=== PATIENT | female | born 1990 | race African-American/Black ===

== ENCOUNTER 2019-05-08 14:36 | Emergency (ER) | payer OTHER ==
[2019-05-08 14:54] VITALS: BP 120/74
--- NOTE | 2019-05-08 15:06 | UC ---
Throat Pain/Nasal Marc HPI - HPI Summary HPI Summary: 28-year-old female with a sore throat since Wednesday evening. She denies any fever or chills. - History of Current Complaint Chief Complaint: UCGeneralIllness Stated Complaint: SORE THROAT Time Seen by Provider: 05/08/19 14:47 Hx Obtained From: Patient ?: No Onset/Duration: Gradual Onset Severity: Mild Pain Intensity: 5 Cough: None Associated Signs & Symptoms: Positive: Negative - Allergies/Home Medications Allergies/Adverse Reactions: Allergies Allergy/AdvReac Type Severity Reaction Status Date / Time No Known Allergies Allergy Verified 05/08/19 14:54 Home Medications: Home Medications Ascorbic Acid TAB* [Vitamin C TAB*] 500 mg PO DAILY 05/08/19 [History Confirmed 05/08/19] Calcium Carbonate [Calcium/C/D] 1 chw PO DAILY 05/08/19 [History Confirmed 05/08] Mcnary-3S/Dha/Epa/Fish Oil [Fish Oil 1,200 mg Softgel] 1 each PO DAILY 05/08/19 [ History Confirmed 05/08/19] Sertraline* [Zoloft*] 25 mg PO DAILY 05/08/19 [History Confirmed 05/08/19] PMH/Surg Hx/FS Hx/Imm Hx Previously Healthy: Yes - Surgical History Surgical History: Yes Surgery Procedure, Year, and Place: c section - Family History Known Family History: Positive: Non-Contributory - Social History Lives: With Family Alcohol Use: Occasionally Substance Use Type: None Smoking Status (MU): Never Smoked Tobacco Review of Systems All Other Systems Reviewed And Are Negative: Yes ENT: Positive: Sore Throat Is Patient Immunocompromised?: No Physical Exam Triage Information Reviewed: Yes Appearance: Well-Appearing, No Pain Distress, Well-Nourished Vital Signs: Initial Vital Signs Temp 98.1 F 05/08/19 14:48 Pulse 56 05/08/19 14:48 Resp 17 05/08/19 14:48 BP 120/74 05/08/19 14:48 Pulse Ox 99 05/08/19 14:48 Vital Signs Reviewed: Yes Eyes: Positive: Conjunctiva Clear ENT: Positive: Pharyngeal erythema - Very minimal pharyngeal erythema., TMs normal, Uvula midline. Negative: Tonsillar swelling, Tonsillar exudate, Trismus , Muffled voice, Hoarse voice Neck: Positive: Supple, Nontender, No Lymphadenopathy Respiratory: Positive: Lungs clear, Normal breath sounds, No respiratory distress, No accessory muscle use Cardiovascular: Positive: RRR, No Murmur, Pulses Normal, Brisk Capillary Refill Musculoskeletal Exam: Normal Neurological Exam: Normal Psychological Exam: Normal Skin Exam: Normal Throat Pain/Nasal Course/Dx - Course Course Of Treatment: Rapid strep test: Negative Patient is comfortable here and nontoxic. - Differential Dx/Diagnosis Provider Diagnosis: Pharyngitis Discharge ED - Sign-Out/Discharge Documenting (check all that apply): Patient Departure All imaging exams completed and their final reports reviewed: No Studies - Discharge Plan Condition: Good Disposition: HOME Patient Education Materials: Pharyngitis (ED) Referrals: Care [facility] [Outside] No Primary Care Phys,NOPCP [Primary Care Provider] - Additional Instructions: Warm saltwater gargles, throat lozenges. Follow up with [facility] in 4 or 5 days if continued symptoms or if any worsening symptoms. - Billing Disposition and Condition Condition: GOOD Disposition: Home
== END 2019-05-08 15:17 | disposition home or self-care (01) ==
LOC: UCCORT 14:36
DX: J02.9 Acute pharyngitis, unspecified (principal)
CPT/HCPCS: 87651; 99201; G0463